=== PATIENT | female | born 1950 | race Caucasian/White ===

== ENCOUNTER 2022-02-19 10:01 | Inpatient (IN) ==
[2022-02-19] MEDS ORDERED: 0.9 % SODIUM CHLORIDE 1,000 ML IV ONE ×3 (10:05→14:52)
[2022-02-19 10:36] LABS: POC Calcium, Ionized 1.03 (1.16-1.32); POC Creatinine 1.3 (0.6-1.2); POC Potassium 3.6 (3.3-5.1)
[2022-02-19] MEDS ORDERED: cefTRIAXone 2 GM in DEXTROSE 5% IN WATER 50 ML IV ONE (10:40)
--- NOTE | 2022-02-19 10:45 | Emergency Department Note ---
HPI General Chief complaint: Blood Pressure Problem Stated complaint: low blood pressure Time Seen by Provider: 02/19/22 10:05 Source: patient Mode of arrival: ambulatory Limitations: no limitations History of Present Illness HPI Narrative: Narrative: Patient presents to the ED after being sent over from urgent care due to hypotension. Patient was being seen over urgent care for complaints of acute on chronic sinus infection and earache x2 weeks and also 1 bout of diarrhea last night. She was noted to be tachycardic and hypotensive with systolic blood pressure 80. Patient states she did feel little bit dizzy today. She did not take her blood pressure medication today because she did feel little lightheaded and felt that it was low. Patient takes amlodipine, lisinopril and propranolol. Patient states she just not has not been feeling well. She was not vaccine against COVID-19 but she did become infected with COVID-19 back in August of this year. Patient states that every since she is moved to the area she has been having a hard time with her sinuses and earaches she has she will be leaving the area soon. Patient denies fever, chills, nausea, vomiting, cardiac chest pain, heart palpitations of breath dysuria hematuria, urinary frequency, melena, medic easier. Patient denies any other alleviating or aggravating factors. Patient does reports being prescribed steroids several times over the past month. Patient states she has a upcoming trip to [place] that she is really looking forward to. Related Data Home Medications Medication Instructions Recorded Confirmed lisinopril 10 mg tablet 20 mg PO QAM 10/31/17 02/20/22 pravastatin 10 mg tablet 20 mg PO QHS 10/31/17 02/20/22 aspirin 81 mg tablet 81 mg PO BID 02/20/22 02/20/22 folic acid 1 mg tablet 1 mg PO QDAY 02/20/22 02/20/22 gabapentin 300 mg capsule 1 cap PO QAM 02/20/22 02/20/22 hydrochlorothiazide 25 mg tablet 1 tab PO QAM 02/20/22 02/20/22 methotrexate sodium 2.5 mg tablet 6 tab PO WEEKLY 02/20/22 02/20/22 metoprolol succinate 50 mg 1 tab PO QAM 02/20/22 02/20/22 tablet,extended release 24 hr montelukast 10 mg tablet 1 tab PO QDAY 02/20/22 02/20/22 propranolol 80 mg tablet 1 tab PO QDP PRN 02/20/22 02/20/22 Previous Rx's Medication Instructions Recorded amoxicillin 875 mg-potassium 1 tab PO BID 10 Days #20 tab 02/19/22 clavulanate 125 mg tablet azithromycin 250 mg tablet See Rx Instructions .ROUTE 02/19/22 .COMPLEX #6 tab Allergies Allergy/AdvReac Type Severity Reaction Status Date / Time pseudoephedrine AdvReac Mild Headache Verified 02/19/22 19:50 bee sting Allergy Severe Anaphylaxis Uncoded 02/19/22 09:40 Review of Systems ROS ROS Narrative: Narrative: All systems ED: reviewed and negative except as stated. PFSH Narrative Patient History Narrative: Narrative: Medical/Surgical/Family History All Active Problems (Updated 02/20/22 @ 08:59 by Darrell Estevez MD) Anemia, normocytic normochromic (Acute) Essential hypertension (Acute) Sepsis (Acute) Septic shock (Acute) Pneumonia (Acute) Acidosis, lactic (Acute) Nausea vomiting and diarrhea (Acute) H/O hysterectomy for benign disease (Acute) Psoriasis (Acute) Psoriatic arthritis (Acute) Sinusitis (Acute) Social History Smoking Status: Never smoker Alcohol Intake Frequency: does not drink Substance Use: does not use Exam Narrative Narrative: Narrative: General Limitations: no limitations General appearance: Present alert Eye Eye: Present PERRL and EOMI ENT ENT: Present normal exam, normal oropharynx and TM's normal bilaterally Respiratory Respiratory: Present normal lung sounds bilaterally; Absent respiratory distress Cardiovascular Cardiovascular: Present regular rate and normal rhythm Adbominal Abdominal: Present soft and normal bowel sounds; Absent tenderness Extremities Extremities: Present normal inspection and normal capillary refill Neurological Neurological: Present oriented X3 and normal gait Psychiatric Psychiatric: Present normal affect and normal mood Skin Skin: Present warm (WNL), intact and normal color Course Course Course Narrative: Patient was evaluated for decreased blood pressure. Patient's systolic blood pressure was in the high 80s when she initially arrived. She was given IV fluids and her blood pressure did respond appropriately. She was also tachycardic so an EKG was obtained and showed sinus tachycardia. Lab work showed elevated white blood cell count, lactic acid and creatinine. Repeat labs showed that her lactic acid came to within normal limits and her creatinine normalized. Initially without the patient white blood cell count may be secondary to steroid use recently. Initially patient did not report a cough but I noticed that she was coughing in the room so a chest x-ray was obtained with images reviewed myself which showed a right lower lobe pneumonia. Patient blood cultures were obtained and patient was given IV Rocephin and azithromycin. Patient did meet criteria for septic shock. My recommendation was for patient to be admitted to the hospital but patient adamantly refused. I advised her of the risk of not being hospitalized and treating her sepsis to include but not limited to . Expressed verbal understanding and was still preferred to be treated in the outpatient setting. Patient has decision-making capability and she is currently hemodynamically stable. Patient advised that she could deteriorate quickly despite being on oral antibiotics but she still request to be discharged home. Patient will be discharged on oral antibiotics to include Augmentin and azithromycin. She is to follow-up with her PCP within 1 week. Patient is to seek medical attention immediately if symptoms worsen or she changes her mind about being admitted. Patient is signed appropriate AMA paperwork. ----Upon further review pt changes her mind and decided to to be admitted which is a great decision. Case discussed with hospitalist for admission for sepsis secondary to pneumonia and he has graciously accepted. Reevaluation(s) Reevaluation #1: Patient remains hemodynamic stable. No new complaints at this time Time: 11:11 Consultations Consultation #1: case discussed with hospitalist who will evaluate pt for admission Vital Signs Vital signs: Vital Signs Temperature 97.0 F 02/19/22 10:04 Pulse Rate 111 H 02/19/22 10:04 Respiratory Rate 16 02/19/22 10:04 Blood Pressure 84/54 02/19/22 10:04 Pulse Oximetry (%) 93 02/19/22 10:04 Temperature 99 F 02/20/22 16:04 Pulse Rate 96 H 02/20/22 16:04 Respiratory Rate 20 02/20/22 16:04 Blood Pressure 167/83 02/20/22 16:04 Pulse Oximetry (%) 93 02/20/22 16:04 [facility] Narrative Medical decision making narrative: Narrative: Differential Diagnosis Differential Diagnosis: Sepsis, viral infection sinusitis Medical Records Medical records reviewed: Yes I reviewed the patient's medical records. Lab Data Lab results reviewed: Yes I reviewed the patient's lab results. Result diagrams: 02/20/22 05:22 02/20/22 05:22 Labs: Lab Results 02/19/22 02/19/22 02/19/22 Range/Units 10:23 10:23 10:31 WBC 24.3 H (4.5-11.0) K/mcL RBC 4.54 (3.59-5.38) M/mcL Hgb 13.9 (11.2-15.7) g/dL Hct 41.1 (34.1-44.9) % POC Hct 44.0 (36-48) MCV 90.5 (80.0-100.0) fL MCH 30.6 (26.0-34.0) pg MCHC 33.8 (31.0-36.0) g/dL RDW 12.8 (11.5-14.5) % Plt Count 194 (140-440) K/mcL MPV 10.4 (7.4-10.4) fL Immature Gran % (Auto) 0.6 H (0.0-0.5) % Neut % (Auto) 91.6 H (38.0-78.0) % Lymph % (Auto) 3.6 L (15.5-49.0) % [place]bs % (Auto) 3.9 (1.0-12.0) % Eos % (Auto) 0.1 (0.0-7.0) % Baso % (Auto) 0.2 (0.0-2.0) % Lymph # (Auto) 0.87 L (1.50-4.80) K/mcL [place] # (Auto) 0.95 H (0.10-0.90) K/mcL Eos # (Auto) 0.02 (0.00-0.70) K/mcL Baso # (Auto) 0.06 (0.00-0.30) K/mcL Immature Gran # 0.15 H (0.00-0.05) K/mcl Absolute Neutrophils 22.43 H (1.80-8.00) K/mcL POC VBG pH (7.32-7.42) POC VBG pCO2 at Temp (41-51) POC VBG pO2 (25-40) POC VBG HCO3 (24-28) POC VBG Total CO2 (25-29) POC Venous O2 Sat (40-70) POC VBG Base Excess (-2-2) POC Sodium 134 (133-145) POC Potassium 3.6 (3.3-5.1) POC Chloride 96 (96-108) POC Total CO2 25.0 (22-30) POC BUN 28 H (6-20) POC Creatinine 1.3 H (0.6-1.2) POC Glucose 133 H (70-105) POC Venous Lactate (0.5-2) POC WB Ioniz Calcium 1.03 L (1.16-1.32) Total Bilirubin 0.9 (0.1-1.0) mg/dL Direct Bilirubin 0.4 H (<0.3) mg/dL AST 28 (<32) U/L ALT 23 (<40) U/L Alkaline Phosphatase 77 (39-117) U/L Total Protein 7.5 (5.9-8.4) gm/dL Albumin 3.6 (3.2-5.2) gm/dL Globulin 3.9 H (2.2-3.7) gm/dL 02/19/22 02/19/22 02/19/22 Range/Units 10:33 12:46 13:49 WBC 24.7 H (4.5-11.0) K/mcL RBC 4.09 (3.59-5.38) M/mcL Hgb 12.5 (11.2-15.7) g/dL Hct 37.6 (34.1-44.9) % POC Hct 34.0 L (36-48) MCV 91.9 (80.0-100.0) fL MCH 30.6 (26.0-34.0) pg MCHC 33.2 (31.0-36.0) g/dL RDW 12.9 (11.5-14.5) % Plt Count 173 (140-440) K/mcL MPV 10.4 (7.4-10.4) fL Immature Gran % (Auto) 0.6 H (0.0-0.5) % Neut % (Auto) 88.9 H (38.0-78.0) % Lymph % (Auto) 4.5 L (15.5-49.0) % [place]ombs % (Auto) 5.8 (1.0-12.0) % Eos % (Auto) 0 (0.0-7.0) % Baso % (Auto) 0.2 (0.0-2.0) % Lymph # (Auto) 1.12 L (1.50-4.80) K/mcL [place]bs # (Auto) 1.43 H (0.10-0.90) K/mcL Eos # (Auto) 0.01 (0.00-0.70) K/mcL Baso # (Auto) 0.05 (0.00-0.30) K/mcL Immature Gran # 0.16 H (0.00-0.05) K/mcl Absolute Neutrophils 22.11 H (1.80-8.00) K/mcL POC VBG pH 7.43 H (7.32-7.42) POC VBG pCO2 at Temp 39.5 L (41-51) POC VBG pO2 18 L (25-40) POC VBG HCO3 26.0 (24-28) POC VBG Total CO2 27.0 (25-29) POC Venous O2 Sat 28.0 L (40-70) POC VBG Base Excess 2.0 (-2-2) POC Sodium 136 (133-145) POC Potassium 3.7 (3.3-5.1) POC Chloride 99 (96-108) POC Total CO2 23.0 (22-30) POC BUN 25 H (6-20) POC Creatinine 1.1 (0.6-1.2) POC Glucose 106 H (70-105) POC Venous Lactate 3.8 H (0.5-2) POC WB Ioniz Calcium 1.06 L (1.16-1.32) Total Bilirubin (0.1-1.0) mg/dL Direct Bilirubin (<0.3) mg/dL AST (<32) U/L ALT (<40) U/L Alkaline Phosphatase (39-117) U/L Total Protein (5.9-8.4) gm/dL Albumin (3.2-5.2) gm/dL Globulin (2.2-3.7) gm/dL 02/19/22 Range/Units 13:50 WBC (4.5-11.0) K/mcL RBC (3.59-5.38) M/mcL Hgb (11.2-15.7) g/dL Hct (34.1-44.9) % POC Hct (36-48) MCV (80.0-100.0) fL MCH (26.0-34.0) pg MCHC (31.0-36.0) g/dL RDW (11.5-14.5) % Plt Count (140-440) K/mcL MPV (7.4-10.4) fL Immature Gran % (Auto) (0.0-0.5) % Neut % (Auto) (38.0-78.0) % Lymph % (Auto) (15.5-49.0) % [place]ombs % (Auto) (1.0-12.0) % Eos % (Auto) (0.0-7.0) % Baso % (Auto) (0.0-2.0) % Lymph # (Auto) (1.50-4.80) K/mcL [place] # (Auto) (0.10-0.90) K/mcL Eos # (Auto) (0.00-0.70) K/mcL Baso # (Auto) (0.00-0.30) K/mcL Immature Gran # (0.00-0.05) K/mcl Absolute Neutrophils (1.80-8.00) K/mcL POC VBG pH 7.40 (7.32-7.42) POC VBG pCO2 at Temp 41.1 (41-51) POC VBG pO2 20 L (25-40) POC VBG HCO3 25.8 (24-28) POC VBG Total CO2 27.0 (25-29) POC Venous O2 Sat 33.0 L (40-70) POC VBG Base Excess 1.0 (-2-2) POC Sodium (133-145) POC Potassium (3.3-5.1) POC Chloride (96-108) POC Total CO2 (22-30) POC BUN (6-20) POC Creatinine (0.6-1.2) POC Glucose (70-105) POC Venous Lactate 1.6 (0.5-2) POC WB Ioniz Calcium (1.16-1.32) Total Bilirubin (0.1-1.0) mg/dL Direct Bilirubin (<0.3) mg/dL AST (<32) U/L ALT (<40) U/L Alkaline Phosphatase (39-117) U/L Total Protein (5.9-8.4) gm/dL Albumin (3.2-5.2) gm/dL Globulin (2.2-3.7) gm/dL ED POC Tests ED POC Tests: AUGUST - SARS Antigen Negative EKG Data EKG #1: EKG attestation: Yes I reviewed and interpreted this EKG. EKG shows normal: sinus rhythm Rate: tachycardia (103) Rhythm: NSR Brewster/QRS: normal ST segment elevation in: None ST segment depression in: None Interpretation: no acute changes Core Measures AMI Core Measures Followed: Yes Discharge Plan Patient/Caregiver Discharge Instructions Pt seen by ENERGY RATER/PA only: No Clinical Impression: Septic shock, Acidosis, lactic Pneumonia Qualifiers: Pneumonia type: due to unspecified organism Laterality: right Lung location: lower lobe of lung Qualified Code(s): J18.9 - Pneumonia, unspecified organism Activity: resume usual activities as tolerated Patient Disposition: Xfer As Inpt ([facility] Condition: Fair Discharge Date/Time: 02/19/22 19:04
[2022-02-19 11:07] LABS: Basophils # (Auto) 0.06 K/mcL (0.00-0.30); Basophils % (Auto) 0.2 % (0.0-2.0); Eosinophils # (Auto) 0.02 K/mcL (0.00-0.70); Eosinophils % (Auto) 0.1 % (0.0-7.0); Hematocrit 41.1 % (34.1-44.9); Hemoglobin 13.9 g/dL (11.2-15.7); Lymphocytes # (Auto) 0.87 K/mcL (1.50-4.80); Lymphocytes % (Auto) 3.6 % (15.5-49.0); Mean Cell Volume 90.5 fL (80.0-100.0); Mean Corpuscular HGB Conc 33.8 g/dL (31.0-36.0); Mean Platelet Volume 10.4 fL (7.4-10.4); Monocytes # (Auto) 0.95 K/mcL (0.10-0.90); Monocytes % (Auto) 3.9 % (1.0-12.0); Neutrophils % (Auto) 91.6 % (38.0-78.0); Platelet Count 194 K/mcL (140-440); RBC 4.54 M/mcL (3.59-5.38); Red Cell Distribution Width 12.8 % (11.5-14.5); WBC 24.3 K/mcL (4.5-11.0)
[2022-02-19 12:33] LABS: ALT/SGPT 23 U/L (<40); AST/SGOT 28 U/L (<32); Albumin 3.6 gm/dL (3.2-5.2); Alkaline Phosphatase 77 U/L (39-117); Bilirubin,Direct 0.4 mg/dL (<0.3); Bilirubin,Total 0.9 mg/dL (0.1-1.0); Globulin 3.9 gm/dL (2.2-3.7)
[2022-02-19 13:46] LABS: Basophils # (Auto) 0.05 K/mcL (0.00-0.30); Basophils % (Auto) 0.2 % (0.0-2.0); Eosinophils # (Auto) 0.01 K/mcL (0.00-0.70); Eosinophils % (Auto) 0 % (0.0-7.0); Hematocrit 37.6 % (34.1-44.9); Hemoglobin 12.5 g/dL (11.2-15.7); Lymphocytes # (Auto) 1.12 K/mcL (1.50-4.80); Lymphocytes % (Auto) 4.5 % (15.5-49.0); Mean Cell Volume 91.9 fL (80.0-100.0); Mean Corpuscular HGB Conc 33.2 g/dL (31.0-36.0); Mean Platelet Volume 10.4 fL (7.4-10.4); Monocytes # (Auto) 1.43 K/mcL (0.10-0.90); Monocytes % (Auto) 5.8 % (1.0-12.0); Neutrophils % (Auto) 88.9 % (38.0-78.0); Platelet Count 173 K/mcL (140-440); RBC 4.09 M/mcL (3.59-5.38); Red Cell Distribution Width 12.9 % (11.5-14.5); WBC 24.7 K/mcL (4.5-11.0)
[2022-02-19 13:54] LABS: POC Calcium, Ionized 1.06 (1.16-1.32); POC Creatinine 1.1 (0.6-1.2); POC Potassium 3.7 (3.3-5.1)
[2022-02-19] MEDS ORDERED: ONDANSETRON 4 MG/2 ML VIAL IV ONE (14:12)
[2022-02-19] MEDS ORDERED: BENZONATATE 100 MG CAPSULE PO ONE (14:12)
--- NOTE | 2022-02-19 14:50 | XRay Report ---
HISTORY: Cough, hypertension FINDINGS: There is an ill-defined alveolar infiltrate in the right lung base, partially obscuring the right diaphragm. This is a new finding since 04/18/14. The left lung is clear. The heart is borderline enlarged and magnified by portable technique. There is no congestive heart failure. There may be a tiny right-sided pleural effusion. IMPRESSION: Pneumonia or atelectasis in the right lower lobe Interpreted and Authenticated by: Nolberto Marte 02/19/22
[2022-02-19] MEDS ORDERED: ACETAMINOPHEN 500 MG TABLET PO ONE (14:51)
[2022-02-19] MEDS: AZITHROMYCIN 500 MG in DEXTROSE 5% IN WATER 250 ML IV SCH (15:07)
--- NOTE | 2022-02-19 18:36 | Internal Med History&Physical ---
HPI History of Present Illness Patient information: Note initiated : 02/19/22 at 6:27 pm Service Date, if different from initiated Date: [] Patient: Jing Dyer a 71 y/o F admitted on for low blood pressure. Chief Complaint: [general weakness, cough, shortness of breath] Chief complaint: general weakness, cough, shortness of breath History of present illness: Ms. Dyer is a 71 year old F history of essential hypertensions and psoriatic arthritis, presenting with 3-day history of nasal congestion with postnasal drip, facial pressure, fever, chills, shortness of breath, nonproductive cough, general body weakness, muscle aches and joint pain. There was no prior similar episode. Patient is not vaccinated against pneumococcus, influenza, or COVID. Patient denies any sick contact recent travel or introduction of new food. She is complaining of 3-day history of nasal congestion with postnasal drip, facial pressure, fever, chills, shortness of breath, nonproductive cough, general body weakness, muscle aches and joint pain. No alleviating or exacerbating factors. She presented to [facility] where she got referred to our ED for further evaluations. Vital signs significant for tachycardia with heart rate up to 1 teens beats per minute. Also significant for tachypnea with rate of breathing in the mid 20s breaths per minute. She is saturating at low 90s on room air. Labs significant for leukocytosis with WBC 24.7, with left shift. Lactic acid elevated over 3 initially. Chest x-ray showing right lower lobe pneumonia versus atelectasis. COVID and respiratory panels pending. Constitutional Constitutional: Present chills, fatigue, fever(s) and weakness; Absent excessive sweating EENT Eyes: Absent blurry vision, change in vision, loss of vision or other visual disturbances Ears: Absent decreased hearing or tinnitus Nose, mouth and throat: Present nasal discharge, sinus pain and sinus pressure; Absent abnormal hearing, dry mouth, headache(s), nasal congestion or sore throat Cardiovascular Cardiovascular: Absent chest pain, chest pain at rest, edema, irregular heart rhythm or palpatations Respiratory Respiratory: Present cough and dyspnea; Absent wheezing or excessive phlegm production Gastrointestinal Gastrointestinal: Absent abdominal pain, constipation, diarrhea, nausea or vomiting Musculoskeletal Musculoskeletal: Present arthralgias and myalgias; Absent back pain, deformity, limited range of motion, muscle cramps, muscle weakness or numbness Integumentary Integumentary: Absent lesions, rash or wounds Neurological Neurological: Absent focal weakness, headache(s) or numbness Psychiatric Psychiatric: Absent anxiety, depression or hallucinations PFSH PFSH All Active Problems (Updated 02/19/22 @ 18:35 by Darrell Estevez MD) Essential hypertension (Acute) Sepsis (Acute) Septic shock (Acute) Pneumonia (Acute) Acidosis, lactic (Acute) Nausea vomiting and diarrhea (Acute) H/O hysterectomy for benign disease (Acute) Psoriasis (Acute) Psoriatic arthritis (Acute) Sinusitis (Acute) Social History alcohol intake frequency: does not drink substance use type: does not use MEDS/ALLERGIES Home Medications and Allergies Home Medications Medication Instructions Recorded Confirmed Type amlodipine 2.5 mg tablet (Norvasc) 2.5 mg PO QDAY 10/31/17 02/19/22 History lisinopril 10 mg tablet 10 mg PO QDAY 10/31/17 02/19/22 History pravastatin 10 mg tablet 10 mg PO QHS 10/31/17 02/19/22 History propranolol 60 mg capsule,24 60 mg PO QDAY 10/31/17 02/19/22 History hr,extended release secukinumab 150 mg/mL subcutaneous 150 mg SUBCUT Q4W 12/10/21 02/19/22 History syringe (Cosentyx) amoxicillin 875 mg-potassium 1 tab PO BID 10 Days #20 tab 02/19/22 Rx clavulanate 125 mg tablet azithromycin 250 mg tablet See Rx Instructions .ROUTE 02/19/22 Rx .COMPLEX #6 tab Allergies Allergy/AdvReac Type Severity Reaction Status Date / Time pseudoephedrine Allergy Intermediate Headache Verified 02/19/22 10:05 bee sting Allergy Severe Anaphylaxis Uncoded 02/19/22 09:40 EXAM Constitutional Vitals: Temp Pulse Resp BP Pulse Ox 36.3 C 95 H 24 H 103/59 93 02/19/22 16:38 02/19/22 17:16 02/19/22 17:28 02/19/22 17:16 02/19/22 17:16 General appearance: cooperative and no acute distress Head Head exam: Present atraumatic and normocephalic Eye Eye exam: Present EOMI and PERRL ENT ENT exam: Present mucous membranes moist, normal exam and normal external ear exam Neck Neck exam: Present normal inspection; Absent lymphadenopathy, tenderness or thyromegaly Respiratory Respiratory exam: Present rhonchi; Absent accessory muscle use, respiratory distress or wheezes Cardiovascular Cardiovascular exam: Present normal rate and rhythm; Absent JVD GI/Abdominal GI/Abdominal exam: Present normal bowel sounds and soft; Absent organomegaly or tenderness Extremities Exam Extremities exam: Present full ROM, normal capillary refill and normal inspection; Absent tenderness Neurological Exam Neurological exam: Present alert, CN II-XII intact and oriented X3; Absent motor sensory deficit Psychiatric Psychiatric exam: Present normal affect and normal mood; Absent anxious or depressed Skin Skin exam: Present dry and intact DATA Data Completed and Pending Labs: Labs from last 24 hours 02/19/22 02/19/22 02/19/22 13:50 13:49 12:46 WBC 24.7 H RBC 4.09 Hgb 12.5 Hct 37.6 POC Hct 34.0 L MCV 91.9 MCH 30.6 MCHC 33.2 RDW 12.9 Plt Count 173 MPV 10.4 Immature Gran % (Auto) 0.6 H Neut % (Auto) 88.9 H Lymph % (Auto) 4.5 L [place] % (Auto) 5.8 Eos % (Auto) 0 Baso % (Auto) 0.2 Lymph # (Auto) 1.12 L [place] # (Auto) 1.43 H Eos # (Auto) 0.01 Baso # (Auto) 0.05 Immature Gran # 0.16 H Absolute Neutrophils 22.11 H POC VBG pH 7.40 POC VBG pCO2 at Temp 41.1 POC VBG pO2 20 L POC VBG HCO3 25.8 POC VBG Total CO2 27.0 POC Venous O2 Sat 33.0 L POC VBG Base Excess 1.0 POC Sodium 136 POC Potassium 3.7 POC Chloride 99 POC Total CO2 23.0 POC BUN 25 H POC Creatinine 1.1 POC Glucose 106 H POC Venous Lactate 1.6 POC WB Ioniz Calcium 1.06 L Total Bilirubin Direct Bilirubin AST ALT Alkaline Phosphatase Total Protein Albumin Globulin 02/19/22 02/19/22 02/19/22 10:33 10:31 10:23 WBC RBC Hgb Hct POC Hct 44.0 MCV MCH MCHC RDW Plt Count MPV Immature Gran % (Auto) Neut % (Auto) Lymph % (Auto) Eagle % (Auto) Eos % (Auto) Baso % (Auto) Lymph # (Auto) Eagle # (Auto) Eos # (Auto) Baso # (Auto) Immature Gran # Absolute Neutrophils POC VBG pH 7.43 H POC VBG pCO2 at Temp 39.5 L POC VBG pO2 18 L POC VBG HCO3 26.0 POC VBG Total CO2 27.0 POC Venous O2 Sat 28.0 L POC VBG Base Excess 2.0 POC Sodium 134 POC Potassium 3.6 POC Chloride 96 POC Total CO2 25.0 POC BUN 28 H POC Creatinine 1.3 H POC Glucose 133 H POC Venous Lactate 3.8 H POC WB Ioniz Calcium 1.03 L Total Bilirubin 0.9 Direct Bilirubin 0.4 H AST 28 ALT 23 Alkaline Phosphatase 77 Total Protein 7.5 Albumin 3.6 Globulin 3.9 H 02/19/22 10:23 WBC 24.3 H RBC 4.54 Hgb 13.9 Hct 41.1 POC Hct MCV 90.5 MCH 30.6 MCHC 33.8 RDW 12.8 Plt Count 194 MPV 10.4 Immature Gran % (Auto) 0.6 H Neut % (Auto) 91.6 H Lymph % (Auto) 3.6 L [place] % (Auto) 3.9 Eos % (Auto) 0.1 Baso % (Auto) 0.2 Lymph # (Auto) 0.87 L [place] # (Auto) 0.95 H Eos # (Auto) 0.02 Baso # (Auto) 0.06 Immature Gran # 0.15 H Absolute Neutrophils 22.43 H POC VBG pH POC VBG pCO2 at Temp POC VBG pO2 POC VBG HCO3 POC VBG Total CO2 POC Venous O2 Sat POC VBG Base Excess POC Sodium POC Potassium POC Chloride POC Total CO2 POC BUN POC Creatinine POC Glucose POC Venous Lactate POC WB Ioniz Calcium Total Bilirubin Direct Bilirubin AST ALT Alkaline Phosphatase Total Protein Albumin Globulin A/P Assessment and plan (1) Pneumonia: Status: Acute Qualifiers: Laterality: right Lung location: lower lobe of lung Pneumonia type: due to unspecified organism Qualified Code(s): J18.9 - Pneumonia, unspecified organism (2) Sepsis: Status: Acute (3) Psoriatic arthritis: Status: Acute (4) Essential hypertension: Status: Acute Narrative A/P Narrative: Assessment and Plans: 1. Pneumonia with associated (severe) sepsis: Inpatient med surg Supplemental oxygen therapy Serial lactic acid Respiratory panel Blood culture cbc w/ auto diff in the morning to trend WBC s/p IV fluid bolus given in the ED, to be followed by NS@100cc/hr Angela Churchthromax 2. Essential HTN: Hold all oral antihypertensives in the context of sepsis 3. History of psoriatic arthritis: Secukiumab q4W, outpatient GI ppx: not currently indicated DVT ppx: Lovenox Code status: Full Prognosis: guarded Disposition: inpatient med surg Time Spent With Patient Time: Total time spent is greater than 50% in coordination of care (as documented) at patient's floor/unit and/or counseling patient: Total time spent with greater than 50% in coordination of care (as documented) at patient's floor/unit and/or counseling patient:: 50 - 70 minutes
[2022-02-19] MEDS ORDERED: METOPROLOL TARTRATE 5 MG/5 ML VIAL IV PRN (19:08)
[2022-02-19] MEDS ORDERED: IPRATROPIUM/ALBUTEROL 3 ML AMPUL.NEB NEB PRN (19:08)
[2022-02-19] MEDS ORDERED: ACETAMINOPHEN 325 MG TABLET PO PRN (19:08)
[2022-02-19] MEDS ORDERED: traZODone HCL 50 MG TABLET PO PRN (19:08)
[2022-02-19] MEDS ORDERED: cefTRIAXone 1 GM in DEXTROSE 5% IN WATER 50 ML IV SCH (19:08)
[2022-02-19] MEDS ORDERED: guaiFENesin/DEXTROMETHORPHAN ORAL SOL PO PRN (19:08)
[2022-02-19] MEDS ORDERED: ONDANSETRON 4 MG/2 ML VIAL IV PRN (19:08)
[2022-02-19] MEDS: DOCUSATE SODIUM 100 MG CAPSULE PO SCH (20:05)
[2022-02-19] MEDS: SENNOSIDES 1 TABLET PO SCH (20:05)
[2022-02-19] MEDS: 0.9 % SODIUM CHLORIDE 1,000 ML IV SCH (20:06)
[2022-02-19] MEDS: 0.9 % SODIUM CHLORIDE 10 ML SYRINGE IV SCH (20:06)
[2022-02-19] MEDS: SIMVASTATIN 10 MG TABLET PO SCH (20:07)
[2022-02-20] MEDS: 0.9 % SODIUM CHLORIDE 10 ML SYRINGE IV SCH ×3 (05:23→21:05)
[2022-02-20 06:13] LABS: Basophils # (Auto) 0.03 K/mcL (0.00-0.30); Basophils % (Auto) 0.2 % (0.0-2.0); Eosinophils # (Auto) 0.08 K/mcL (0.00-0.70); Eosinophils % (Auto) 0.5 % (0.0-7.0); Hematocrit 32.9 % (34.1-44.9); Lymphocytes # (Auto) 1.09 K/mcL (1.50-4.80); Lymphocytes % (Auto) 6.6 % (15.5-49.0); Mean Cell Volume 91.6 fL (80.0-100.0); Mean Corpuscular HGB Conc 33.4 g/dL (31.0-36.0); Mean Platelet Volume 10.4 fL (7.4-10.4); Monocytes # (Auto) 0.95 K/mcL (0.10-0.90); Monocytes % (Auto) 5.7 % (1.0-12.0); Neutrophils % (Auto) 86.3 % (38.0-78.0); Platelet Count 177 K/mcL (140-440); RBC 3.59 M/mcL (3.59-5.38); Red Cell Distribution Width 12.9 % (11.5-14.5); WBC 16.5 K/mcL (4.5-11.0)
[2022-02-20] MEDS: 0.9 % SODIUM CHLORIDE 1,000 ML IV SCH ×3 (06:45→18:15)
[2022-02-20 06:48] LABS: ALT/SGPT 16 U/L (<40); AST/SGOT 17 U/L (<32); Albumin 2.3 gm/dL (3.2-5.2); Albumin/Globulin Ratio 0.7 (1.0-2.3); Alkaline Phosphatase 62 U/L (39-117); Bilirubin,Total 0.4 mg/dL (0.1-1.0); Blood Urea Nitrogen 24 mg/dL (8-23); Calcium 8.1 mg/dL (8.6-10.4); Carbon Dioxide 24 mmol/L (22-30); Chloride 104 mmol/L (96-108); Globulin 3.4 gm/dL (2.2-3.7); Glomerular Filtration Rate 87; Glucose 85 mg/dL (70-105); Phosphorous 2.4 mg/dL (2.5-4.5)
--- NOTE | 2022-02-20 09:00 | Internal Med Progress Note ---
SUBJECTIVE Subjective Patient information: Note initiated : 02/20/22 at 8:56 am Service Date, if different from initiated Date: [] Patient: Jing Dyer a 71 y/o F admitted on 02/19/22 for low blood pressure. Chief Complaint: [] Interval history: History of present illness: Ms. Dyer is a 71 year old F history of essential hypertensions and psoriatic arthritis, presenting with 3-day history of nasal congestion with postnasal drip, facial pressure, fever, chills, shortness of breath, nonproductive cough, general body weakness, muscle aches and joint pain. There was no prior similar episode. Patient is not vaccinated against pneumococcus, influenza, or COVID. Patient denies any sick contact recent travel or introduction of new food. She is complaining of 3-day history of nasal congestion with postnasal drip, facial pressure, fever, chills, shortness of breath, nonproductive cough, general body weakness, muscle aches and joint pain. No alleviating or exacerbating factors. She presented to [facility] care where she got referred to our ED for further evaluations. Vital signs significant for tachycardia with heart rate up to 1 te ens beats per minute. Also significant for tachypnea with rate of breathing in the mid 20s breaths per minute. She is saturating at low 90s on room air. Labs significant for leukocytosis with WBC 24.7, with left shift. Lactic acid elevated over 3 initially. Chest x-ray showing right lower lobe pneumonia versus atelectasis. COVID and respiratory panels pending. 02/20: CoVID negative. Afebrile overnight. Patient was on 2 L/min of oxygen overnight but currently is on room air. Blood culture no growth to date. Patient is feeling a lot better this morning improving degree of shortness of breath. She is complain of nonproductive cough. She denies any fever chills or diaphoresis. Denies general body weakness. Poor appetite. Continue IV fluids for now. Continue Rocephin and Zithromax. Continue to monitor blood culture result. Constitutional Vitals: Vital Signs Temp Pulse Resp BP Pulse Ox 35.9 C L 91 H 18 133/69 98 02/20/22 08:01 02/20/22 08:01 02/20/22 08:01 02/20/22 08:01 02/20/22 08:01 Period Temp Pulse Resp BP Sys/Gonsales Pulse Ox Last 24 Hr 35.9 C-38.7 C 88-120 11-27 78-181/42-87 90-98 Intake and Output 02/19/22 02/20/22 02/20/22 21:59 05:59 13:59 Intake Total 1250 1000 Balance 1250 1000 Weight 97.114 kg Intake & Output: Intake & Output 02/19/22 02/20/22 02/20/22 21:59 05:59 13:59 Intake Total 1250 1000 Balance 1250 1000 Weight 97.114 kg Intake: IV 1250 1000 Sodium Chloride 0.9% 1,000 ml @ 1000 1000 100 mls/hr IV .Q10H ALYSA Rx#: [id number] Zithromax 500 mg In Dextrose 5% 250 in Water 250 ml @ 250 mls/hr IV Q24H ALYSA Rx#:[id number] Head Head exam: Present atraumatic and normal inspection Eye Eye exam: Present normal appearance ENT ENT exam: Present mucous membranes moist, normal exam and normal external ear exam Neck Neck exam: Present normal inspection Respiratory Respiratory exam: Present normal respiratory exam and rhonchi Cardiovascular Cardiovascular exam: Present normal rate and rhythm GI/Abdominal GI/Abdominal exam: Present normal bowel sounds Back Exam Back exam: Present normal inspection Neurological Exam Neurological exam: Present alert and oriented X3 Skin Skin exam: Present intact and warm OBJ DATA Labs CBC & Chem 7: 02/20/22 05:22 02/20/22 05:22 Labs: Abnormal Lab Results 02/20/22 02/20/22 02/19/22 05:22 05:22 13:50 WBC 16.5 H Hgb 11.0 L Hct 32.9 L POC Hct Immature Gran % (Auto) 0.7 H Neut % (Auto) 86.3 H Lymph % (Auto) 6.6 L Lymph # (Auto) 1.09 L [place] # (Auto) 0.95 H Immature Gran # 0.11 H Absolute Neutrophils 14.38 H POC VBG pH POC VBG pCO2 at Temp POC VBG pO2 20 L POC Venous O2 Sat 33.0 L POC BUN BUN 24 H POC Creatinine POC Glucose POC Venous Lactate Calcium 8.1 L POC WB Ioniz Calcium Phosphorus 2.4 L Direct Bilirubin Total Protein 5.7 L Albumin 2.3 L Globulin Albumin/Globulin Ratio 0.7 L 02/19/22 02/19/22 02/19/22 13:49 12:46 10:33 WBC 24.7 H Hgb Hct POC Hct 34.0 L Immature Gran % (Auto) 0.6 H Neut % (Auto) 88.9 H Lymph % (Auto) 4.5 L Lymph # (Auto) 1.12 L [place] # (Auto) 1.43 H Immature Gran # 0.16 H Absolute Neutrophils 22.11 H POC VBG pH 7.43 H POC VBG pCO2 at Temp 39.5 L POC VBG pO2 18 L POC Venous O2 Sat 28.0 L POC BUN 25 H BUN POC Creatinine POC Glucose 106 H POC Venous Lactate 3.8 H Calcium POC WB Ioniz Calcium 1.06 L Phosphorus Direct Bilirubin Total Protein Albumin Globulin Albumin/Globulin Ratio 02/19/22 02/19/22 02/19/22 10:31 10:23 10:23 WBC 24.3 H Hgb Hct POC Hct Immature Gran % (Auto) 0.6 H Neut % (Auto) 91.6 H Lymph % (Auto) 3.6 L Lymph # (Auto) 0.87 L [place] # (Auto) 0.95 H Immature Gran # 0.15 H Absolute Neutrophils 22.43 H POC VBG pH POC VBG pCO2 at Temp POC VBG pO2 POC Venous O2 Sat POC BUN 28 H BUN POC Creatinine 1.3 H POC Glucose 133 H POC Venous Lactate Calcium POC WB Ioniz Calcium 1.03 L Phosphorus Direct Bilirubin 0.4 H Total Protein Albumin Globulin 3.9 H Albumin/Globulin Ratio Meds: Medications Acetaminophen (Acetaminophen 325 Mg Tablet) 650 mg PO Q6HP PRN; Protocol PRN Reason: Per Pain Protocol/Fever > 101 Albuterol/Ipratropium (Ipratropium/Albuterol 3 Ml Ampul.Neb) 3 ml NEB Q4HRT PRN PRN Reason: Wheezing Ceftriaxone Sodium (Ceftriaxone 1 Gm Vial) 1 gm IV Q24H [facility] Docusate Sodium (Docusate Sodium 100 Mg Capsule) 100 mg PO BID [facility] Last Admin: 02/19/22 20:05 Dose: Not Given Documented by: Enoxaparin Sodium (Enoxaparin 40 Mg/0.4 Ml Syringe) 40 mg SQ DAILY [facility] Guaifenesin (Guaifenesin/Dextromethorphan Oral Cindy) 10 ml PO Q4HP PRN PRN Reason: Cough Azithromycin 500 mg/ Dextrose 250 mls @ 250 mls/hr IV Q24H [facility]; Protocol Stop: 02/21/22 15:59 Last Infusion: 02/19/22 16:07 Dose: Infused Documented by: Sodium Chloride (Sodium Chloride 0.9%) 1,000 mls @ 100 mls/hr IV .Q10H [facility] Last Admin: 02/20/22 06:45 Dose: 100 mls/hr Documented by: Metoprolol Tartrate (Metoprolol Tartrate 5 Mg/5 Ml Vial) 5 mg IV Q5M PRN PRN Reason: Tachyarrhythmias Ondansetron HCl (Ondansetron 4 Mg/2 Ml Vial) 4 mg IV Q6HP PRN PRN Reason: Nausea And Vomiting Senna (Sennosides 1 Tablet) 2 tab PO [facility] Last Admin: 02/19/22 20:05 Dose: Not Given Documented by: Simvastatin (Simvastatin 10 Mg Tablet) 5 mg PO [facility] Last Admin: 02/19/22 20:07 Dose: Not Given Documented by: Sodium Chloride (0.9 % Sodium Chloride 10 Ml Syringe) 10 ml IV Q8 [facility] Last Admin: 02/20/22 05:23 Dose: Not Given Documented by: Trazodone HCl (Trazodone Hcl 50 Mg Tablet) 25 mg PO HSP PRN PRN Reason: Insomnia A/P Assessment and plan (1) Pneumonia: Status: Acute Qualifiers: Laterality: right Lung location: lower lobe of lung Pneumonia type: due to unspecified organism Qualified Code(s): J18.9 - Pneumonia, unspecified organism (2) Sepsis: Status: Acute (3) Psoriatic arthritis: Status: Acute (4) Essential hypertension: Status: Acute (5) Anemia, normocytic normochromic: Status: Acute Narrative A/P Narrative: Assessment and Plans: 1. Pneumonia with associated (severe) sepsis: Inpatient med surg Supplemental oxygen therapy Serial lactic acid Respiratory panel, CoVID negative Blood culture, no growth to date cbc w/ auto diff in the morning to trend WBC s/p IV fluid bolus given in the ED, to be followed by NS@100cc/hr Angela Wolfe 2. Essential HTN: Hold all oral antihypertensives in the context of sepsis 3. History of psoriatic arthritis: Secukiumab q4W, outpatient 4. Anemia, normocytic normochromic: cbc w/ auto diff in the morning to trend H/H GI ppx: not currently indicated DVT ppx: Lovenox Code status: Full Prognosis: stable Disposition: inpatient med surg Time Spent With Patient Time: Total time spent is greater than 50% in coordination of care (as documented) at patient's floor/unit and/or counseling patient: Total time spent with greater than 50% in coordination of care (as documented) at patient's floor/unit and/or counseling patient:: 35 - 50 minutes
[2022-02-20] MEDS: cefTRIAXone 1 GM VIAL IV SCH (09:44)
[2022-02-20] MEDS: DOCUSATE SODIUM 100 MG CAPSULE PO SCH ×2 (09:44→20:40)
[2022-02-20] MEDS: AZITHROMYCIN 500 MG in DEXTROSE 5% IN WATER 250 ML IV SCH (09:44)
[2022-02-20] MEDS: ENOXAPARIN 40 MG/0.4 ML SYRINGE SQ SCH (09:44)
[2022-02-20] MEDS: SENNOSIDES 1 TABLET PO SCH (20:40)
[2022-02-20] MEDS: SIMVASTATIN 10 MG TABLET PO SCH (20:45)
[2022-02-20] MEDS: ASPIRIN 81 MG TAB.CHEW PO SCH (20:45)
[2022-02-21] MEDS: 0.9 % SODIUM CHLORIDE 1,000 ML IV SCH (04:36)
[2022-02-21] MEDS: 0.9 % SODIUM CHLORIDE 10 ML SYRINGE IV SCH (05:46)
[2022-02-21 06:46] LABS: Basophils # (Auto) 0.03 K/mcL (0.00-0.30); Basophils % (Auto) 0.3 % (0.0-2.0); Eosinophils # (Auto) 0.11 K/mcL (0.00-0.70); Eosinophils % (Auto) 1.2 % (0.0-7.0); Hematocrit 34.1 % (34.1-44.9); Hemoglobin 11.3 g/dL (11.2-15.7); Lymphocytes # (Auto) 1.27 K/mcL (1.50-4.80); Lymphocytes % (Auto) 13.8 % (15.5-49.0); Mean Cell Volume 92.2 fL (80.0-100.0); Mean Corpuscular HGB Conc 33.1 g/dL (31.0-36.0); Mean Platelet Volume 10.4 fL (7.4-10.4); Monocytes # (Auto) 0.74 K/mcL (0.10-0.90); Monocytes % (Auto) 8.1 % (1.0-12.0); Neutrophils % (Auto) 75.8 % (38.0-78.0); Platelet Count 214 K/mcL (140-440); Red Cell Distribution Width 12.7 % (11.5-14.5); WBC 9.2 K/mcL (4.5-11.0)
[2022-02-21 06:55] LABS: ALT/SGPT 15 U/L (<40); AST/SGOT 17 U/L (<32); Albumin/Globulin Ratio 0.6 (1.0-2.3); Alkaline Phosphatase 59 U/L (39-117); Bilirubin,Total 0.3 mg/dL (0.1-1.0); Blood Urea Nitrogen 17 mg/dL (8-23); Calcium 8.5 mg/dL (8.6-10.4); Carbon Dioxide 22 mmol/L (22-30); Chloride 104 mmol/L (96-108); Globulin 3.6 gm/dL (2.2-3.7); Glomerular Filtration Rate 97; Glucose 84 mg/dL (70-105); Phosphorous 2.2 mg/dL (2.5-4.5)
[2022-02-21] MEDS: DOCUSATE SODIUM 100 MG CAPSULE PO SCH (08:08)
--- NOTE | 2022-02-21 08:33 | Discharge Summary ---
Discharge Provider Provider IMPORTANT FOLLOW-UP INFORMATION FOR PCP: Patient information: Note initiated : 02/21/22 at 8:29 am Service Date, if different from initiated Date: [] Patient: Jing Dyer 71 y/o F admitted on 02/19/22 for low blood pressure. Chief Complaint: [] Date of admission: 02/19/22 19:04 Discharge date: 02/21/22 Primary care physician: Sharath Fairchild DO Attending physician on admission: Darrell Estevez Consults: 02/19/22 Consult to Physician [CONS] Stat Comment: Consulting Provider: Darrell Estevez Reason For Exam: Physician to Consult Attending physician on discharge: Darrell Estevez COURSE Hospital Course Hospital course: History of present illness: Ms. Dyer is a 71 year old F history of essential hypertensions and psoriatic arthritis, presenting with 3-day history of nasal congestion with postnasal drip, facial pressure, fever, chills, shortness of breath, nonproductive cough, general body weakness, muscle aches and joint pain. There was no prior similar episode. Patient is not vaccinated against pneumococcus, influenza, or COVID. Patient denies any sick contact recent travel or introduction of new food. She is complaining of 3-day history of nasal congestion with postnasal drip, facial pressure, fever, chills, shortness of breath, nonproductive cough, general body weakness, muscle aches and joint pain. No alleviating or exacerbating factors. She presented to [facility] care where she got referred to our ED for further evaluations. Vital signs significant for tachycardia with heart rate up to 1 teens beats per minute. Also significant for tachypnea with rate of breathing in the mid 20s breaths per minute. She is saturating at low 90s on room air. Labs significant for leukocytosis with WBC 24.7, with left shift. Lactic acid elevated over 3 initially. Chest x-ray showing right lower lobe pneumonia versus atelectasis. COVID and respiratory panels pending. 02/20: CoVID negative. Afebrile overnight. Patient was on 2 L/min of oxygen overnight but currently is on room air. Blood culture no growth to date. Patient is feeling a lot better this morning improving degree of shortness of breath. She is complain of nonproductive cough. She denies any fever chills or diaphoresis. Denies general body weakness. Poor appetite. Continue IV fluids for now. Continue Rocephin and Zithromax. Continue to monitor blood culture result. 02/21: On room air overnight and this morning. Cultures no growth to date. Patient's shortness of breath much improved and she denies cough or wheezing or fever or chills. Increasing level of energy. Reached clinical stability. Decision made to discharge her with prescriptions of oral antibiotics sent to pharmacy. Instruction to follow-up with PCP in 2 weeks given to the patient. All questions were answered prior to patient being physically discharged. Discharge diagnosis: Community acquired pneumonia Time Spent with Patient Time attestation: Total time spent providing and/or coordinating discharge services: Time spent: Less than 30 minutes EXAM Constitutional Vitals: Temp Pulse Resp BP Pulse Ox 36.6 C 90 18 148/76 93 02/21/22 07:23 02/21/22 07:23 02/21/22 07:23 02/21/22 07:23 02/21/22 07:25 General appearance: cooperative and no acute distress Head Head exam: Present atraumatic and normocephalic Eye Eye exam: Present EOMI and PERRL ENT ENT exam: Present mucous membranes moist, normal exam and normal external ear exam Neck Neck exam: Present normal inspection; Absent lymphadenopathy, tenderness or thyromegaly Respiratory Respiratory exam: Present rhonchi; Absent accessory muscle use, respiratory distress or wheezes Cardiovascular Cardiovascular exam: Present normal rate and rhythm; Absent JVD GI/Abdominal GI/Abdominal exam: Present normal bowel sounds and soft; Absent organomegaly or tenderness Extremities Exam Extremities exam: Present full ROM, normal capillary refill and normal inspection; Absent tenderness Neurological Exam Neurological exam: Present alert, CN II-XII intact and oriented X3; Absent motor sensory deficit Psychiatric Psychiatric exam: Present normal affect and normal mood; Absent anxious or depressed Skin Skin exam: Present dry and intact Discharge Data Data Completed and Pending Labs on day of discharge: Labs from last 24 hours 02/21/22 02/21/22 05:27 05:27 WBC 9.2 RBC 3.70 Hgb 11.3 Hct 34.1 MCV 92.2 MCH 30.5 MCHC 33.1 RDW 12.7 Plt Count 214 MPV 10.4 Immature Gran % (Auto) 0.8 H Neut % (Auto) 75.8 Lymph % (Auto) 13.8 L [place] % (Auto) 8.1 Eos % (Auto) 1.2 Baso % (Auto) 0.3 Lymph # (Auto) 1.27 L [place] # (Auto) 0.74 Eos # (Auto) 0.11 Baso # (Auto) 0.03 Immature Gran # 0.07 H Absolute Neutrophils 7.04 Sodium 138 Potassium 3.3 Chloride 104 Carbon Dioxide 22 Anion Gap 12.0 BUN 17 Creatinine 0.5 L GFR Calculation 97 Glucose 84 Calcium 8.5 L Phosphorus 2.2 L Magnesium 1.8 Total Bilirubin 0.3 AST 17 ALT 15 Alkaline Phosphatase 59 Total Protein 5.6 L Albumin 2.0 L Globulin 3.6 Albumin/Globulin Ratio 0.6 L Preliminary micro results at discharge 02/19/22 11:14 Blood Culture - Preliminary Blood 02/19/22 11:10 Blood Culture - Preliminary Blood Discharge Plan Patient/Caregiver Discharge Instructions Activity: resume usual activities as tolerated Diet: Regular Diet Instructions: Community Acquired Pneumonia (DC) Activity Restrictions/Additional Instructions: Follow-up with your PCP within 1 week You are very sick and should be admitted to the hospital and there is a chance you would have to return to the emergency room, I asked that she do so immediately if her symptoms worsen or if you change your mind Use antibiotics as prescribed Seek medical attention symptoms worsen Prescriptions: New amoxicillin-pot clavulanate 875-125 mg tablet 1 tab PO BID 10 Days Qty: 20 0RF dextromethorphan-guaifenesin [Robafen DM Cough] 10-100 mg/5 mL Liquid 10 ml PO Q4HP PRN (Reason: Cough) 7 Days 0RF Continued lisinopril 10 mg tablet 20 mg PO QAM 0RF pravastatin 10 mg tablet 20 mg PO QHS 0RF propranolol 80 mg tablet 1 tab PO QDP PRN0RF metoprolol succinate 50 mg tablet extended release 24 hr 1 tab PO QAM 0RF methotrexate sodium 2.5 mg tablet 6 tab PO WEEKLY 0RF Rx Instructions: Take every gabapentin 300 mg capsule 1 cap PO QAM 0RF folic acid 1 mg Tablet 1 mg PO QDAY 0RF Rx Instructions: Do not take on the day take methotrexate montelukast 10 mg tablet 1 tab PO QDAY 0RF aspirin 81 mg Tablet 81 mg PO BID 0RF hydrochlorothiazide 25 mg tablet 1 tab PO QAM 0RF Follow Up Plan Follow up with: Sharath Fairchild DO [Primary Care Provider] - Patient Disposition: Home, Self-Care Prognosis: Fair Rehab Potential: Good I certify that the patient requires SNF services: No Overall status at discharge: patient is progressing back to baseline Discharge Orders: Discharge Order (Routine); Ordered 02/21/22 Ordered By: Darrell Estevez
[2022-02-21] MEDS ORDERED: MONTELUKAST 10 MG TABLET PO SCH (09:00)
[2022-02-21] MEDS ORDERED: METOPROLOL SUCCINATE 50 MG TAB.XL.24H PO SCH (09:00)
[2022-02-21] MEDS ORDERED: FOLIC ACID 1 MG TABLET PO SCH (09:00)
[2022-02-21] MEDS ORDERED: GABAPENTIN 300 MG CAPSULE PO SCH (09:00)
[2022-02-21] MEDS: ENOXAPARIN 40 MG/0.4 ML SYRINGE SQ SCH (09:02)
[2022-02-21] MEDS: cefTRIAXone 1 GM VIAL IV SCH (09:02)
[2022-02-21] MEDS: AZITHROMYCIN 500 MG in DEXTROSE 5% IN WATER 250 ML IV SCH (09:03)
[2022-02-21] MEDS: ASPIRIN 81 MG TAB.CHEW PO SCH (09:03)
[2022-02-25] MEDS ORDERED: METHOTREXATE SODIUM 2.5 MG TABLET PO SCH (09:00)
--- NOTE | 2022-02-26 10:28 | EKG ---
[facility] Test Date: 2022-02-19 Pat Name: Jing Dyer Department: ED Room: Gender: Female [employer]: DANIELITO : 1950 Requested By: Toney Torres Order Number: [id number] Reading MD: Arnav Vanessa Measurements Intervals [place] Rate: 103 P: 0 UT: 166 QRS: 56 QRSD: 82 T: 39 QT: 324 QTc: 424 Interpretive Statements Sinus tachycardia Electronically Signed On 02-26-2022 10:27:37 PDT by Arnav Vanessa /store/[email or web address]/[id number]
== END 2022-02-21 12:00 | disposition home or self-care (01) | DRG 871 ==
LOC: ED 10:01 → ICU 19:04
PROVIDERS: ADMIT Internal Medicine; ATTEND Internal Medicine